=== PATIENT | female | born 1970 | race Caucasian/White ===

== ENCOUNTER 2019-04-12 01:14 | Emergency (ER) | payer SELFPAY ==
[~2019-04-12] VITALS: Ht 152.4 cm; Wt 68.5 kg
[2019-04-12 01:20] VITALS: Ht 152.4 cm; Wt 68.5 kg
[2019-04-12 02:44] LABS: BASOPHIL % 0.9 % (0-2); PLATELET COUNT 278 x10^3mcL (130-400); RED CELL DISTRIBUTION WIDTH 14.4 % (11.5-14.5)
[2019-04-12 03:25] LABS: CHLORIDE SERUM 107 mmol/L (98-107); CREATININE SERUM 0.8 mg/dL (0.6-1.0); GFR1 > 60 mL/min; GLUCOSE SERUM 117 mg/dL (74-106); SODIUM SERUM 143 mmol/L (136-145)
[2019-04-12 03:38] LABS: ALBUMIN 4.3 g/dL (3.4-5.0); ALKALINE PHOSPHATASE 85 U/L (46-116); ALT/SGPT 62 U/L (14-59); AST/SGOT 51 U/L (15-37); BILIRUBIN TOTAL 0.2 mg/dL (0.20-1.00); T4(THYROXINE) 8.7 ug/dL (4.7-13.3)
[2019-04-12 06:35] LABS: AMPHETAMINE QUAL UR NONE DETECTED (See below)
[2019-04-12 06:36] VITALS: BP 131/64
== END 2019-04-12 06:36 | disposition home or self-care (01) ==
LOC: ED 01:14
PROVIDERS: Emergency Medicine
DX: R00.2 Palpitations (principal)
CPT/HCPCS: 36415; 85378; J0153; Q0092